=== PATIENT | male | born 1965 | race Caucasian/White ===

== ENCOUNTER 2016-07-13 21:33 | Emergency (ER) | payer OTHER ==
[~2016-07-13] VITALS: Ht 180.3 cm; Wt 98.4 kg
[~2016-07-13 21:33] MED LIST: NORC10TA2 PO
[2016-07-13 21:53] VITALS: BP 119/91; PULSE 114; RESP 20; TEMP 97.8; O2SAT 96
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
[2016-07-13] MEDS ORDERED: AMOXICILLIN/CLAVULANATE K 875 MG TAB PO ONE (22:45)
[2016-07-13] MEDS ORDERED: TETANUS/DIPHTHERIA TOXOID ADULT 0.5 ML VIAL IM ONE (22:45)
[2016-07-13] MEDS ORDERED: AUGM875T3 PO (22:50)
== END 2016-07-13 23:24 | disposition home or self-care (01) ==
LOC: PHEFT 21:33
DX: S61.552A Open bite of left wrist, initial encounter (principal); Z23 Encounter for immunization; F17.210 Nicotine dependence, cigarettes, uncomplicated; W54.0XXA Bitten by dog, initial encounter; Y93.9 Activity, unspecified; Y92.9 Unspecified place or not applicable; Y99.9 Unspecified external cause status
CPT/HCPCS: 90471; 90714